=== PATIENT | female | born 1955 | race Caucasian/White ===

== ENCOUNTER → 2018-08-30 | Outpatient (CLI) | payer OTHER ==
--- NOTE | 2018-08-30 17:19 | KCIC ---
Bilateral digital screening mammograms: Reason for examination: Routine screening. Comparison is made to previous studies dated 11/29/2013 and 03/18/2010. Interpretation was made with the benefit of CAD. The skin and nipples show no abnormalities. No abnormal axillary lymph nodes are seen. Bilateral breast implants remain present and show evidence of intracapsular rupture. On the left however there is fluid density in the lower inner quadrant which probably represents extracapsular rupture. Recommend further evaluation with ultrasound. The breast parenchyma is extremely dense. (Breast density: Category D.) There are no other dominant masses, suspicious calcifications or architectural distortion. Impression: Nodular density in the lower inner quadrant of the left breast which probably represents extracapsular rupture of the left breast implant with bilateral intracapsular rupture evident. Recommend further evaluation with ultrasound. Your patient's mammogram demonstrates that she has dense breast tissue (breast density category C or D), which could hide abnormalities, and if she has other risk factors for breast cancer that have been identified, she might benefit from supplemental screening tests that may be suggested by you as her ordering physician. Dense breast tissue, in and of itself, is a relatively common condition. Therefore, this information is not provided to cause undue concern, but rather to raise your awareness and to promote discussion with your patient regarding the presence of other risk factors, in addition to dense breast tissue. Your patient's mammography results will be sent to her. BI-RAD Category 0: Incomplete. Needs additional imaging evaluation. "Our facility is accredited by the [employer] Mammography Program." This patient's information has been entered into a reminder system for the patient to be notified with the results of her examination and a target date for the next mammogram. Electronically signed by: Dotty Oliver MD (08/30/2018 5:16 PM) [id number]
== END | disposition home or self-care (01) ==
LOC: KCIC MAMMO 09:52
PROVIDERS: ATTEND Family Medicine
DX: Z12.31 Encounter for screening mammogram for malignant neoplasm of breast (principal)
CPT/HCPCS: 77067

== ENCOUNTER → 2018-09-06 | Outpatient (CLI) | payer OTHER ==
--- NOTE | 2018-09-06 14:20 | KCIC ---
EXAM: Left breast sonogram. HISTORY: 63-year-old female presents for evaluation of nodularity within the left breast demonstrated on a mammogram dated 08/30/2018. TECHNIQUE: Sonographic imaging of the left breast including all 4 quadrants and the retroareolar region was performed. COMPARISON: Mammogram dated 08/30/2018. FINDINGS: There is a circumscribed hypoechoic lesion at the 7:00 position approximately 5.0 cm from the nipple along the inferior inner aspect of a left breast implant capsule, measuring approximately 3.3 cm in maximum dimension. The adjacent implant wall at the 6:00 and 8:00 positions appears intact. IMPRESSION: 1. Circumscribed hypoechoic lesion at the 7:00 position measuring 3.3 cm in maximum dimension. The mammographic and sonographic appearance favors extracapsular implant rupture. This is retrospectively increased compared to the prior study 11/29/2013. 2. BI-RADS Category 2: Benign finding(s). Surgical consultation can be obtained for extracapsular implant rupture if clinically indicated. Electronically signed by: Rosalinda Navarro MD (09/06/2018 2:16 PM) [id number]
== END | disposition home or self-care (01) ==
LOC: KCIC US 13:49
PROVIDERS: ATTEND Family Medicine
DX: N64.89 Other specified disorders of breast (principal)
CPT/HCPCS: 76641